=== PATIENT | female | born 1955 | race Caucasian/White ===

== ENCOUNTER 2020-10-03 09:51 | Day surgery (SDC) | payer MEDICARE ==
[~2020-10-03] VITALS: Ht 152.4 cm; Wt 77.6 kg
[~2020-10-03 09:51] MED LIST: CETI10TA74 PO; CLINDAMYCIN 900MG PREMIX 50 ML IV PRN; CYCL10TA2 PO; HYDROmorphone 2 MG/ML VIAL IVP PRN; IV RINGERS,LACTATED 1000ML 1,000 ML IV SCH; METF500T16 PO; MORPHINE SULFATE 2 MG/ML VIAL. IVP PRN; NAPR220T70 PO; PROCHLORPERAZINE 10 MG/2 ML VIAL. IVP PRN; fentaNYL PF VIAL 100 MCG/2 ML VIAL IVP PRN
[2020-10-03] MEDS ORDERED: INSULIN LISPRO 100 UNIT/ML 3ML VIAL for OP,RR ONLY. SQ PRN (10:15)
[2020-10-03 10:49] LABS: BASO % 1 % (0-3); EOS # 0.3 x10^3/uL (0.0-0.7); EOS % 4 % (0-3); HEMATOCRIT 39.7 % (36.0-47.0); LYMPH # 2.7 x10^3/uL (1.0-4.8); LYMPH % 45 % (24-48); MEAN CORPUSCULAR HEMOGLOBIN 30 pg (25-35); MEAN CORPUSCULAR HGB CONC 33 g/dL (31-37); MEAN CORPUSCULAR VOLUME 91 fL (79-100); MONO # 0.4 x10^3/uL (0.0-1.1); MONO % 7 % (0-9); NEUT # 2.5 x10^3/uL (1.8-7.7); NEUT % 43 % (31-73); PLATELET COUNT 252 x10^3/uL (140-400); RED BLOOD COUNT 4.35 x10^6/uL (3.50-5.40); RED CELL DISTRIBUTION WIDTH 13.4 % (11.5-14.5); WHITE BLOOD COUNT 5.9 x10^3/uL (4.0-11.0)
[2020-10-03 11:07] LABS: CALCIUM 9.4 mg/dL (8.5-10.1); GFR 55.6
[2020-10-03 11:13] LABS: ALBUMIN 3.9 g/dL (3.4-5.0); TOTAL BILIRUBIN 0.4 mg/dL (0.2-1.0); TOTAL PROTEIN 7.7 g/dL (6.4-8.2)
[2020-10-03] MEDS ORDERED: ONDANSETRON PF 4 MG/2 ML VIAL. ONE (11:29)
[2020-10-03] MEDS ORDERED: PROPOFOL 10 MG/ML (20ML) VIAL. IV ONE (11:29)
[2020-10-03] MEDS ORDERED: DEXAMETHASONE SOD PHOS 4 MG/ML VIAL ONE ×2 (11:29→11:59)
[2020-10-03] MEDS ORDERED: LIDOCAINE 2% PF 5 ML VIAL. ONE ×2 (11:29→12:10)
[2020-10-03] MEDS ORDERED: fentaNYL PF VIAL 100 MCG/2 ML VIAL ONE (11:31)
[2020-10-03] MEDS ORDERED: MIDAZOLAM HCL/PF 2 MG/2 ML VIAL. ONE (11:31)
[2020-10-03] MEDS ORDERED: LIDOCAINE 1% PF 30 ML VIAL. ONE (11:50)
[2020-10-03] MEDS ORDERED: BUPIVACAINE MPF 0.5% 30 ML VIAL. ONE (11:50)
[2020-10-03] MEDS ORDERED: HYDR-2763 PO (13:06)
[2020-10-03 13:40] VITALS: BP 132/52
[2020-10-03] MEDS ORDERED: HYDROcodone/APAP 7.5/325MG 1 TAB TABLET ONE (13:49)
[2020-10-03] MEDS ORDERED: HYDROcodone/APAP 7.5/325MG 1 TAB TABLET PO ONE (14:00)
[2020-10-04 00:08] LABS: HEMOGLOBIN A1C 5.9 % (4.8-5.6)
--- NOTE | 2020-10-07 14:10 | PATHOLOGY ---
[facility] Accession Number: [id number] . 01 Material submitted: . digit - MUCOCUTANEOUS CYST LEFT FOURTH PHALANX . 02 Diagnosis: Skin and subcutaneous tissue, left fourth phalanx lesion excision: - Digital mucous cyst. (JPM:dav; 10/07/2020) MBR 10/07/2020 1121 Local . 02 Electronically signed: . Alberto Sanchez MD, Pathologist NPI- [id number] . 01 Gross description: . Received in formalin labeled "Bonita Sweeney, mucocutaneous cyst left fourth phalanx" is an unoriented ellipse of skin measuring 1.9 x 0.4 x 0.3 cm. The skin surface displays a raised hogan-white possible cystic structure measuring 0.4 x 0.3 x 0.1 cm. The margin is inked and the specimen is sectioned into 5 pieces. The specimen is submitted entirely in A1-A2, with the tips in the last cassette. ([facility]; 10/04/2020) GZA/GZA 10/04/2020 1413 Local . 02 Pathologist provided ICD-10: L72.9 . 02 CPT . 046938 Specimen Comment: A courtesy copy of this report has been sent to [phone] Specimen Comment: Report sent to Performed at: 01 [facility] [address], [place] [id number] MD Jean-Paul Dunbar MD Phone: [phone] Performed at: 02 [facility] [address] [place], [place] [id number] MD Alberto Sanchez MD Phone: [phone]
--- NOTE | 2020-10-10 12:25 | OP ---
DATE OF SURGERY: 10/03/2020 This is an outpatient surgery. PREOPERATIVE HISTORY: This patient was initially seen in my office 04/01/2020, complaining of a growth on her fourth toe, left foot. It had been observed and treated in [place] years ago, but has continued to be a problem. She desires to have it excised today. Preoperative workup has been completed. She is negative for COVID. The patient is seen prior to surgery and understands the risks and complications of procedure. POSTOPERATIVE DIAGNOSIS: Mucocutaneous cyst, fourth toe, at the distal interphalangeal joint along with slight mallet toe deformity. PROCEDURE PERFORMED: Excision of mucocutaneous cyst and part of the middle phalanx where the mucocutaneous cyst appears to originate from. ANESTHESIA: IV sedative anesthesia with a total ankle block utilizing 25 mL of 1% Xylocaine and 0.5% Marcaine plain. DESCRIPTION OF THE PROCEDURE: The patient was brought to the operating room. She was left on the transport cart for ease and having to move her back and forth. She was sedated by Anesthesia, ankle block performed. The foot was scrubbed and prepped with Betadine and draped in the usual sterile fashion. Tourniquet was applied at the ankle, was inflated to 250 mmHg after the foot was exsanguinated with a Kevin's tourniquet. Attention was directed to the fourth toe, where 2 linear incisions were made from proximal to distal. The mucocutaneous cyst lesion was excised in total and submitted for pathology. The underlying area was then inspected and it was noted that there were some irregularities in the middle phalanx, possibly some type of trauma. The distal part of the middle phalanx was isolated and removed using a rongeur. The area was copiously flushed with normal saline. The area was inspected. Deep structures were closed with 4-0 Vicryl and skin was closed with 4-0 nylon. Tourniquet was deflated. Capillary filling time returned to digit immediately. The patient left the operating room in stable satisfactory condition. The patient will be provided a postop shoe and will be seen next week for postop visit, i.e., Wednesday or Wednesday ____ will allow. SANIA MITTAL DPM DR: SAUMYA/[email or web address] JOB#: [id number] / [id number]
== END 2020-10-03 14:20 | disposition home or self-care (01) ==
LOC: SURG 09:51
PROVIDERS: ATTEND Podiatrist
DX: L72.9 Follicular cyst of the skin and subcutaneous tissue, unspecified (principal); M20.41 Other hammer toe(s) (acquired), right foot; E78.00 Pure hypercholesterolemia, unspecified; N18.9 Chronic kidney disease, unspecified; E11.22 Type 2 diabetes mellitus with diabetic chronic kidney disease; F32.9 Major depressive disorder, single episode, unspecified; Z90.710 Acquired absence of both cervix and uterus; Z98.890 Other specified postprocedural states; Z90.49 Acquired absence of other specified parts of digestive tract; Z79.899 Other long term (current) drug therapy; Z79.84 Long term (current) use of oral hypoglycemic drugs; Z87.891 Personal history of nicotine dependence; Z88.1 Allergy status to other antibiotic agents; Z88.2 Allergy status to sulfonamides; Z88.8 Allergy status to other drugs, medicaments and biological substances
CPT/HCPCS: 28108; 36415; 80053; 82962; 83036; 85025; 88304; J2250; J2704; J3010; J3490; J7120; J1100; J2405

== ENCOUNTER 2021-02-08 10:29 | Emergency (ER) | payer MEDICARE ==
[~2021-02-08] VITALS: Ht 157.5 cm; Wt 80.0 kg
[~2021-02-08 10:29] MED LIST changes: +CEFD300C PO; -CLINDAMYCIN 900MG PREMIX 50 ML IV PRN; +DEXA0.5E2 PO; +HYDR-2763 PO; -HYDROmorphone 2 MG/ML VIAL IVP PRN; -IV RINGERS,LACTATED 1000ML 1,000 ML IV SCH; -MORPHINE SULFATE 2 MG/ML VIAL. IVP PRN; -PROCHLORPERAZINE 10 MG/2 ML VIAL. IVP PRN; -fentaNYL PF VIAL 100 MCG/2 ML VIAL IVP PRN
[2021-02-08 10:35] VITALS: BP 181/74
[2021-02-08] MEDS ORDERED: LIDOCAINE/EPI/TETRACAINE TOPICAL GEL 3 ML. TP ONE (10:45)
[2021-02-08] MEDS ORDERED: HYDROcodone/APAP 5/325MG 1 TAB TABLET PO ONE (10:45)
[2021-02-08] MEDS ORDERED: LIDOCAINE 1% Multi-Dose 20 ML VIAL. INJ ONE (10:45)
--- NOTE | 2021-02-08 11:50 | PHYS DOC ---
Past Medical History Past Medical History: Diabetes-Type II, Fibromyalgia, High Cholesterol Past Surgical History: Other Additional Past Surgical Histo: LEFT 2ND TOE; L4-5 FUSSION Smoking Status: Current Every Day Smoker Alcohol Use: None General Adult EDM: Chief Complaint: WOUND CHECK HPI: HPI: Patient is a 65 year old female with history of diabetes type 2, high cholesterol who presents to the ED today for wound packing on the left perineum where she has had an abscess that spontaneously drained last week. Patient follows up with the wound clinic. States the wound was packed yesterday but states she is afraid the packing came out. Denies any fever. Currently on antibiotics Review of Systems: Review of Systems: Constitutional: Denies fever or chills. [] Musculoskeletal: Denies back pain or joint pain. [] Integument: Visit for wound check/dressing change for left perineum abscess Neurologic: Denies headache, focal weakness or sensory changes. [] Psychiatric: Denies depression or anxiety. [] Heart Score: C/O Chest Pain: N/A Risk Factors: Risk Factors: DM, Current or recent (<one month) smoker, HTN, HLP, family hist ory of CAD, obesity. Risk Scores: Score 0 - 3: 2.5% MACE over next 6 weeks - Discharge Home Score 4 - 6: 20.3% MACE over next 6 weeks - Admit for Clinical Observation Score 7 - 10: 72.7% MACE over next 6 weeks - Early Invasive Strategies Current Medications: Current Medications Medications (Trade) Dose Ordered Sig/Holly Start Time Stop Time Status Last Admin Dose Admin Acetaminophen/ Hydrocodone Bitart (Lortab 5/325) 2 tab 1X ONCE 02/08/21 10:45 02/08/21 10:50 DC 02/08/21 10:58 2 TAB Lidocaine HCl (Lidocaine 1% 20ml Vial) 20 ml 1X ONCE 02/08/21 10:45 02/08/21 10:50 DC 02/08/21 10:59 20 ML Tetracaine/ Epinephrine/ Lidocaine (Let (Bevp-Ukanknb-Htrhg) Gel) 6 ml 1X ONCE 02/08/21 10:45 02/08/21 10:50 DC 02/08/21 10:58 6 ML Allergies: Allergies: Allergies Coded Allergies Type Severity Reaction Last Updated Verified Sulfa (Sulfonamide Antibiotics) Allergy Severe Anaphylaxis 10/03/20 Yes cefixime Allergy Severe Anaphylaxis 10/03/20 Yes grass pollen Allergy Intermediate SEASONAL 02/02/21 Yes mushroom Allergy Intermediate ITCHY THROAT 02/02/21 Yes Physical Exam: PE: Constitutional: Well developed, well nourished, no acute distress, non-toxic appearance. [] Skin: Left perineum with 2 open wounds tolerating to each other into the buttock. No signs of erythema around the wounds. Packing present which was removed, noted for drainage on the packing. Back: No tenderness, no CVA tenderness. [] Extremities: No tenderness, no cyanosis, no clubbing, ROM intact, no edema. [] Neurologic: Alert and oriented X 3, normal motor function, normal sensory function, no focal deficits noted. [] Psychologic: Affect normal, judgement normal, mood normal. [] Current Patient Data: Vital Signs: Vital Signs Date Time Temp Pulse Resp B/P (MAP) Pulse Ox O2 Delivery O2 Flow Rate FiO2 02/08/21 10:35 98.4 55 16 181/74 (109) 97 Room Air 98.4 EKG: EKG: [] Radiology/Procedures: Radiology/Procedures: Indication: abscess left perineum Procedure: The patient was positioned appropriately. Local anesthesia was Let solution 6 ml. Old packing was removed and new packing done by me. The patient tolerated the procedure well. Complications: none.[] Course & Med Decision Making: Course & Med Decision Making Pertinent Labs and Imaging studies reviewed. (See chart for details) This is 65-year-old female patient presenting to the ED today for wound check and dressing change. Patient has left perineum abscess that spontaneously opened up and drained last week. She follows up with the wound clinic, wound was packed yesterday but she feels the packing came out. Packing was still present but she requested we remove it and repack according to the directions she got from the wound clinic. Wound was cleaned and repacked by me. Follow-up with outpatient center tomorrow for wound check. Tetanus is up-to-date. Dragon Disclaimer: Dragon Disclaimer: This electronic medical record was generated, in whole or in part, using a voice recognition dictation system. Departure Departure Impression: Primary Impression: Wound check, abscess Disposition: HOME / SELF CARE / HOMELESS Condition: STABLE Referrals: LIBRADO MONROY MD (PCP) follow up with outpatient clinic and wound clinic as scheduled Patient Instructions: Wound Check Additional Instructions: Please follow-up with outpatient clinic of the wound clinic as scheduled. Keep the area clean. Scripts Hydrocodone Bit/Acetaminophen (HYDROCODONE-APAP 5-325 ) 1 Tab Tablet 1 TAB PO PRN Q6HRS PRN for PAIN, #14 TAB 0 Refills Prov: INO HUNTER APRN 02/08/21 INO HUNTER APRN Feb 08, 2021 11:50
[2021-02-08] MEDS ORDERED: HYDR-2761 PO ×2 (12:06→12:08)
== END 2021-02-08 12:13 | disposition home or self-care (01) ==
LOC: ER 10:29
DX: L02.215 Cutaneous abscess of perineum (principal); E11.9 Type 2 diabetes mellitus without complications; E78.00 Pure hypercholesterolemia, unspecified; F17.200 Nicotine dependence, unspecified, uncomplicated; Z88.2 Allergy status to sulfonamides; Z88.8 Allergy status to other drugs, medicaments and biological substances; Z91.018 Allergy to other foods
CPT/HCPCS: 96372; 99283; J3490